=== PATIENT | female | born 2000 | race Caucasian/White ===

== ENCOUNTER 2022-02-15 07:45 | Emergency (ER) | payer BC ==
[~2022-02-15] VITALS: Ht 167.6 cm; Wt 56.7 kg
--- NOTE | 2022-02-15 08:00 | NUR ---
TO ER BED 10. BIBFAMILY C/O RIGHT ANKLE PAIN 5/10 TWISTED WHILE WEARING HEELS LAST NIGHT GIVEN 800MG [employer].
--- NOTE | 2022-02-15 08:05 | NUR ---
S/P FEEL DOWN LAST NIGHT RT ANKLE SWALLEN ABLE TO wigle here rt toes
--- NOTE | 2022-02-15 08:10 | NUR ---
seen byDR Ty
--- NOTE | 2022-02-15 08:21 | NUR ---
X-RAYS DONE AT BED SIDE RESTING AND COMFORTABLE
[2022-02-15 08:26] VITALS: BP 112/50
[2022-02-15] MEDS ORDERED: NAPR-1192 PO (08:40)
--- NOTE | 2022-02-15 09:10 | NUR ---
RT ANKLE STIPE APPLIED BY EMT JONNA MEEK ABLE TO MOVE HERE TOES
--- NOTE | 2022-02-15 09:14 | NUR ---
D/C INSTRACTION GIVEN TO PT FULLY AND VERBLIZED UNDERSTOOD D/C HIME WITH FALLOW UP CARE ABLE AMPLATE
== END 2022-02-15 09:24 | disposition home or self-care (01) ==
LOC: ER 07:47
DX: S93.401A Sprain of unspecified ligament of right ankle, initial encounter (principal); J45.909 Unspecified asthma, uncomplicated; X50.1XXA Overexertion from prolonged static or awkward postures, initial encounter; Y93.89 Activity, other specified; Y92.89 Other specified places as the place of occurrence of the external cause; Y99.8 Other external cause status
CPT/HCPCS: 73610-TC